=== PATIENT | male | born 1980 | race Caucasian/White ===

== ENCOUNTER 2016-09-27 11:40 | Outpatient (CLI) | payer BC ==
--- NOTE | 2016-09-27 14:30 | Diagnostic Imaging Report ---
[facility] [id number] [facility] [address] [id number] Report Submission Date: Sep 27, 2016 12:57:12 PM [employer]IOR [employer] Patient Study Name: DEWEY WALLACE Date: Sep 27, 2016 11:44:55 AM JUNIOR [employer]OMATION [employer]INE[employer] Modality Type: CR Gender: M Description: UPPER EXTREMITY : 82 Institution: [facility] Physician CANDE [place] Left 2nd finger -three views CLINICAL HISTORY: Injury 15 years ago. Pain. FINDINGS: Examination of the left 2nd finger in palmar, lateral and oblique views fails to demonstrate evidence of fracture or dislocation. There is minimal osteophyte formation consistent with degenerative change at the proximal interphalangeal joint. IMPRESSION: Minimal degenerative changes. No fracture. Electronically signed on Sep 27, 2016 12:57:12 PM JUNIOR [employer]OMATION ENGINE[employer] by: Domingo RING
== END 2016-09-27 11:42 ==
LOC: RAD 11:40
PROVIDERS: ATTEND Nurse Practitioner Family
DX: M79.645 Pain in left finger(s) (principal)
CPT/HCPCS: 73140